=== PATIENT | male | born 1985 | race Caucasian/White ===

== ENCOUNTER 2017-04-09 16:13 | Emergency (ER) | payer BC, OTHER ==
[2017-04-09 16:23] VITALS: BP 121/76
--- NOTE | 2017-04-09 16:52 | UC ---
Feli Garcia Thomas, scribed for Moy Ugarte MD on 04/09/17 at 1648 . Throat Pain/Nasal [place] HPI - HPI Summary HPI Summary: The patient is a 31 year old male complaining of a sore throat that began about two weeks ago. The patient describes the pain is worse towards the end of the night compared to the morning. He additionally complains of some sinus pressure and difficulties swallowing. The patient denies sinus drainage, cough congestion , and ear pain. He has taken some Aleve for the pain, but it has not helped him. - History of Current Complaint Chief Complaint: UCRespiratory Stated Complaint: SORE THROAT Time Seen by Provider: 04/09/17 16:37 Hx Obtained From: Patient Onset/Duration: Lasting Weeks - about two weeks., Still Present Severity: Mild Cough: None Associated Signs & Symptoms: Negative: Sinus Discomfort, Other - Ear pain, cough congestion - Allergies/Home Medications Allergies/Adverse Reactions: Allergies Allergy/AdvReac Type Severity Reaction Status Date / Time No Known Allergies Allergy Verified 04/09/17 16:19 PMH/Surg Hx/FS Hx/Imm Hx Previously Healthy: Yes - NEGATIVE: DM, HTN - Surgical History Surgical History: None - Family History Known Family History: Positive: Diabetes - Social History Alcohol Use: Weekly Substance Use Type: None Smoking Status (MU): Never Smoked Tobacco - Immunization History Most Recent Influenza Vaccination: 2014 Review of Systems ENT: Negative - Nasal discharge, Sore Throat Respiratory: Negative - Cough Congestion Is Patient Immunocompromised?: No All Other Systems Reviewed And Are Negative: Yes Physical Exam Triage Information Reviewed: Yes Vital Signs: Initial Vital Signs Temp 97.8 F 04/09/17 16:19 Pulse 53 04/09/17 16:19 Resp 18 04/09/17 16:19 BP 121/76 04/09/17 16:19 Pulse Ox 99 04/09/17 16:19 Vital Signs Reviewed: Yes - Additional Comments General: well-appearing, no pain distress Skin: warm, color reflects adequate perfusion, dry Head: normal Eyes: EOMI, ELIZABETH ENT: Posterior pharynx mildly erythematous Neck: supple, nontender Respiratory: CTA, breath sounds present Cardiovascular: RRR Abdomen: soft, nontender Bowel: present Musculoskeletal: normal, strength/ROM intact Neurological: normal, sensory/motor intact, A&O x3 Psychological: affect/mood appropriate Throat Pain/Nasal Course/Dx - Course Course Of Treatment: Medications Reviewed. RX ABX DUE TO 2 WEEK DURATION OF SX. - Differential Dx/Diagnosis Provider Diagnoses: PARYNGITIS Discharge - Discharge Plan Condition: Stable Disposition: HOME Prescriptions: Amoxicillin/Clavulanate TAB* [Augmentin TAB 875*] 875 mg PO BID #20 tab Patient Education Materials: Pharyngitis (ED) Referrals: Alejandro Sanchez MD [Primary Care Provider] - Additional Instructions: FOLLOW UP WITH YOUR DOCTOR. GET RECHECKED FOR ANY WORSENING OF YOUR CONDITION OR QUESTIONS OR CONCERNS. The documentation as recorded by the Feli garcia Thomas accurately reflects the service I personally performed and the decisions made by me, Moy Ugarte MD.
== END 2017-04-09 17:02 | disposition home or self-care (01) ==
LOC: UCEAST 16:13
DX: J02.9 Acute pharyngitis, unspecified (principal)
CPT/HCPCS: 87651; 99211; G0463